=== PATIENT | male | born 1940 | race African-American/Black ===

== ENCOUNTER 2016-10-09 05:50 | Day surgery (SDC) | payer OTHER ==
[2016-10-03 14:54] LABS: BASOPHILS # (AUTO) 0.1 K/uL (0.0-0.2); BASOPHILS % (AUTO) 0.8 % (0.0-2.0); EOSINOPHILS # (AUTO) 0.2 K/uL (0.0-0.4); EOSINOPHILS % (AUTO) 2.9 % (0.0-4.0); HEMATOCRIT 37.2 % (36-54); HEMOGLOBIN 11.9 g/dL (14.0-18.0); LYMPHOCYTES % (AUTO) 29.7 % (20.5-51.5); MEAN CORPUSCULAR HEMOGLOBIN 29 pg (27-31); MEAN CORPUSCULAR HGB CONC 32 % (32-36); MEAN CORPUSCULAR VOLUME 92 fL (79.0-98.0); MONOCYTES # (AUTO) 0.5 K/uL (0.0-1.0); MONOCYTES % (AUTO) 7.6 % (1.7-9.3); NEUTROPHILS # (AUTO) 3.8 K/uL (1.8-7.7); PLATELET COUNT (AUTO) 127 K/uL (130-430); RED BLOOD CELL COUNT(AUTO) 4.04 MIL/uL (4.2-6.2); RED CELL DISTRIBUTION WIDTH 13.6 % (9.0-15.0); WHITE BLOOD COUNT (AUTO) 6.6 K/uL (4.8-10.8)
[2016-10-03 15:08] LABS: ALANINE AMINOTRANSFERASE 26 U/L (12-78); ALBUMIN 4.2 g/dL (3.4-4.8); ANION GAP 4 (5-15); ASPARTATE AMINOTRANSFERASE 19 U/L (10-37); CALCIUM 9.4 mg/dL (8.4-11.0); CHLORIDE 106 mmol/L (98-107); CREATININE 0.99 mg/dL (0.55-1.30); GLUCOSE 121 mg/dL (70-99); POTASSIUM 3.8 mmol/L (3.5-5.1); SODIUM SERUM 141 mmol/L (136-145); TOTAL BILIRUBIN 0.5 mg/dL (0.0-1.0); UREA NITROGEN, BLOOD 19 mg/dL (8-21)
[2016-10-03 16:26] LABS: BILIRUBIN,URINE NEGATIVE (NEGATIVE); BLOOD, URINE NEGATIVE (NEGATIVE); CLARITY/URINE CLEAR (CLEAR); COLOR,URINE YELLOW (YELLOW); GLUCOSE,URINE NEGATIVE (NEGATIVE); KETONES,URINE NEGATIVE (NEGATIVE); LEUKOCYTE ESTERASE ,URINE NEGATIVE (NEGATIVE); NITRITE, URINE NEGATIVE (NEGATIVE); PROTEIN URINE NEGATIVE (NEGATIVE); UROBILINOGEN,URINE 0.2 (0.2-1.0)
[2016-10-03 17:20] LABS: PROTHROMBIN TIME 10.4 SECS (9.5-12.5)
[~2016-10-09] VITALS: Ht 182.9 cm; Wt 98.9 kg
[~2016-10-09 05:50] MED LIST: ATEN50TA PO; BICA50TA PO; CLON0.5T4 PO; CLOP75TA2 PO; GLU500 PO; HYDR-3924 PO; HYDR-4039 PO; IBUP-1480 PO; NOR10 PO; PRED1TAB PO; SIMV40TA2 PO; TAMS-11 PO; VALS320T10 PO
[2016-10-09 06:35] VITALS: O2SAT 100
[2016-10-09] MEDS ORDERED: PROPOFOL 200MG/ 20ML VIAL (DIPRIVAN) IV ONE (06:55)
[2016-10-09] MEDS ORDERED: fentaNYL CITRATE 250 MCG/5 ML AMP IV ONE (06:55)
[2016-10-09] MEDS ORDERED: ROCURONIUM BROMIDE 10 MG/ML (ZEMURON) IV ONE (06:55)
[2016-10-09] MEDS ORDERED: SEVOFLURANE 15 MIN GAS INH ONE (06:55)
[2016-10-09] MEDS ORDERED: DEXAMETHASONE SOD PHOSPHATE 4 MG/ML VIAL IVP ONE (06:55)
[2016-10-09] MEDS ORDERED: MIDAZOLAM HCL 5 MG/5 ML VIAL IVP ONE (06:55)
[2016-10-09] MEDS ORDERED: LIDOCAINE/EPI 2% 1:100000 20 ML VIAL INJ ONE (06:55)
[2016-10-09] MEDS ORDERED: KETOROLAC TROMETHAMINE 30 MG VIAL IVP ONE (06:55)
[2016-10-09] MEDS ORDERED: NS 1000 ML BAG IV ONE (06:55)
[2016-10-09] MEDS ORDERED: CEFAZOLIN 1 GM IVPB PREMIX 50 ML IV ONE (07:20)
[2016-10-09] MEDS ORDERED: CEFAZOLIN SOD 1 GM in D5W 50 ML IV ONE (07:30)
[2016-10-09] MEDS ORDERED: LR 1,000 ML IV SCH (08:33)
[2016-10-09] MEDS ORDERED: HYDROmorphone 1 MG INJ. 1 MG/ML AMPUL IVP PRN (08:45)
[2016-10-09] MEDS ORDERED: MEPERIDINE HCL/PF 25 MG/ML DISP.SYRIN IVP PRN (08:45)
[2016-10-09] MEDS ORDERED: HYDROmorphone 2 MG/ML VIAL IVP PRN ×2 (08:45)
[2016-10-09] MEDS ORDERED: ACETAMINOPHEN/CODEINE 300 MG-30 MG TABLET PO PRN (09:15)
[2016-10-09] MEDS ORDERED: ONDANSETRON HCL 4 MG/2 ML VIAL IVP PRN (09:15)
[2016-10-09 10:11] VITALS: BP 109/60; PULSE 72; RESP 14
== END 2016-10-09 12:35 | disposition home or self-care (01) ==
LOC: SDS 05:50 → SMU 05:50 → SDS 12:35
PROVIDERS: ATTEND Otolaryngology
DX: L72.0 Epidermal cyst (principal); Z98.890 Other specified postprocedural states; Z85.038 Personal history of other malignant neoplasm of large intestine; Z79.899 Other long term (current) drug therapy; E66.9 Obesity, unspecified; Z68.29 Body mass index [BMI] 29.0-29.9, adult; I10 Essential (primary) hypertension; E11.9 Type 2 diabetes mellitus without complications; Z79.84 Long term (current) use of oral hypoglycemic drugs; N40.0 Benign prostatic hyperplasia without lower urinary tract symptoms; E78.5 Hyperlipidemia, unspecified; Z86.73 Personal history of transient ischemic attack (TIA), and cerebral infarction without residual deficits; F41.9 Anxiety disorder, unspecified; K21.9 Gastro-esophageal reflux disease without esophagitis; I69.834 Monoplegia of upper limb following other cerebrovascular disease affecting left non-dominant side; I69.841 Monoplegia of lower limb following other cerebrovascular disease affecting right dominant side; H40.9 Unspecified glaucoma
CPT/HCPCS: 11440; 11441; 36415; 71020; 80053; 81003; 82962; 85025; 85610; 85730; 88304; J0690; J1100; J1885; J2250; J2704; J3010; J7030; J7120; 88305; J7060